=== PATIENT | male | born 1945 | race Caucasian/White ===

== ENCOUNTER → 2017-09-27 | Outpatient (CLI) | payer MEDICARE ==
[~2017-09-27] MED LIST: HYGROTON 2525 MG/TAB PO; NORCO 325 MG-51 TAB PO; PROCARDIA XL 6060 MG PO; PROSCAR 5MG5 MG PO; PYRIDIUM 100MG100 MG PO; SENOKOT S 50 MG1 TAB PO
== END ==
LOC: COL.RAD 14:48
DX: E04.2 Nontoxic multinodular goiter (principal)

== ENCOUNTER → 2020-10-22 | Outpatient (CLI) | payer MEDICARE ==
[~2020-10-22] MED LIST changes: +COREG 6.256.25 MG/TA PO; +PRILOSEC 20MG20 MG PO; +ZESTRIL40 MG PO
== END ==
LOC: COL.VAS 12:13
DX: I82.462 Acute embolism and thrombosis of left calf muscular vein (principal); I82.432 Acute embolism and thrombosis of left popliteal vein